=== PATIENT | male | born 1985 | race Caucasian/White ===

== ENCOUNTER 2019-01-03 09:43 | Emergency (ER) | payer OTHER ==
[2019-01-03 09:54] VITALS: TEMP 98.4; BMI 29.7
--- NOTE | 2019-01-03 10:12 | PDOC ---
History of Present Illness - History of Present Illness Initial Comments: 01/03/19 11:00 The patient is a 33 year old male, with no significant past medical history, who presents to the emergency department with left testicular pain since . The patient states the pain started after intercourse with his . He states he is sexually active with one woman. He states the pain was mild at onset, increased on Tuesday, but was alleviated after taking Motrin. He states the pain continued as mild until Tuesday when the pain level increased. He states yesterday he took 4-5 Motrin without relief of pain. He reports the pain is exacerbated with palpation and with walking. He states he feels his left testicle is swollen and he feels a small ball in the left testicle. He denies history of sexually transmitted diseases. The patient denies chest pain, shortness of breath, headache and dizziness. The patient denies fever, chills, nausea, vomit, diarrhea and constipation. The patient denies dysuria, frequency, urgency and hematuria. Allergies: NKDA Past surgical history: none reported <Veronica Ferrara - Last Filed: 01/03/19 13:49> - General History Source: Patient Exam Limitations: No Limitations <Carmen Mejia - Last Filed: 01/03/19 14:29> - General Chief Complaint: Pain Stated Complaint: TESTICULAR PAIN Time Seen by Provider: 01/03/19 10:11 Past History <Veronica Ferrara - Last Filed: 01/03/19 13:49> - Past Medical History COPD: No - Suicide/Smoking/Psychosocial Hx Smoking History: Never smoked Have you smoked in the past 12 months: Yes Number of Cigarettes Smoked Daily: 0 Information on smoking cessation initiated: No 'Breaking Loose' booklet given: 04/08/14 Hx Alcohol Use: No Drug/Substance Use Hx: No <Carmen Mejia - Last Filed: 01/03/19 14:29> - Past Medical History Allergies/Adverse Reactions: Allergies Allergy/AdvReac Type Severity Reaction Status Date / Time No Known Allergies Allergy Verified 01/03/19 09:53 Home Medications: Ambulatory Orders Docusate Sodium [Colace -] 100 mg PO HS #30 capsule 04/09/14 Ferrous Sulfate [Feosol] 325 mg PO TIDCM #100 ud 04/09/14 Psyllium Husk/Aspartame [Metamucil Fiber Singles Packet] 3.4 gm PO BID #60 powd.pack 04/09/14 Naproxen Sodium [Anaprox Ds] 550 mg PO BID PRN #20 tablet 01/03/19 Review of Systems - Review of Systems Able to Perform ROS?: Yes Comments:: 01/03/19 11:00 CONSTITUTIONAL: Absent: fever, no chills, no fatigue EYES: Absent: visual changes ENT: Absent: ear pain, no sore throat CARDIOVASCULAR: Absent: chest pain, no palpitations RESPIRATORY: Absent: cough, no SOB GASTROINTESTINAL: Absent: abdominal pain, no nausea, no vomiting, no constipation, no diarrhea GENITOURINARY: (+) Left testicular pain. Absent: dysuria, no frequency, no hematuria MUSCULOSKELETAL: Absent: back pain, no arthralgia, no myalgia SKIN: Absent: rash NEURO: Absent: headache <Veronica Ferrara - Last Filed: 01/03/19 13:49> *Physical Exam - Vital Signs Last Vital Signs Temp Pulse Resp BP Pulse Ox 98.4 F 71 19 126/81 99 01/03/19 09:51 01/03/19 09:51 01/03/19 09:51 01/03/19 09:51 01/03/19 09:51 - Physical Exam Comments: 01/03/19 11:01 GENERAL: The patient is in no acute distress. HEAD: Normal with no signs of trauma. EYES: PERRLA, EOMI, sclera anicteric, conjunctiva clear. ENT: Ears normal, nares patent, oropharynx clear without exudates. Moist mucous membranes. NECK: Normal range of motion, supple without lymphadenopathy, JVD, or masses. LUNGS: Breath sounds equal, clear to auscultation bilaterally. No wheezes, and no crackles. HEART:Regular rate and rhythm, normal S1 and S2 without murmur, rub or gallop. ABDOMEN: Soft, nontender, normoactive bowel sounds. No guarding, no rebound. No masses palpable. GENITAL: (+) left testicle is swollen and tender to palpation. No erythema, no lesions. Uncircumcised. No penile normal cremasteric reflex. No inguinal hernias.right testicle is normal. EXTREMITIES: Normal range of motion, no edema. No clubbing or cyanosis. No erythema, or tenderness. NEUROLOGICAL: Cranial nerves II through XII grossly intact. Normal speech. No focal neurological deficits. MUSCULOSKELETAL: Back non-tender to palpation, no CVA tenderness SKIN: Warm, Dry, normal turgor, no rashes or lesions noted. <Veronica Ferrara - Last Filed: 01/03/19 13:49> - Vital Signs Last Vital Signs Temp Pulse Resp BP Pulse Ox 98.4 F 71 19 126/81 99 01/03/19 09:51 01/03/19 09:51 01/03/19 09:51 01/03/19 09:51 01/03/19 09:51 <Carmen Mejia - Last Filed: 01/03/19 14:29> Moderate Sedation - Procedure Monitoring Vital Signs: Procedure Monitoring Vital Signs Temperature 98.4 F 01/03/19 09:51 Pulse Rate 71 01/03/19 09:51 Respiratory Rate 01/03/19 09:51 Blood Pressure 126/81 01/03/19 09:51 O2 Sat by Pulse Oximetry (%) 99 01/03/19 09:51 <Veronica Ferrara - Last Filed: 01/03/19 13:49> - Procedure Monitoring Vital Signs: Procedure Monitoring Vital Signs Temperature 98.4 F 01/03/19 09:51 Pulse Rate 71 01/03/19 09:51 Respiratory Rate 01/03/19 09:51 Blood Pressure 126/81 01/03/19 09:51 O2 Sat by Pulse Oximetry (%) 99 01/03/19 09:51 <Carmen Mejia - Last Filed: 01/03/19 14:29> ED Treatment Course - RADIOLOGY Radiograph Interpretation: EXAM#: TYPE/EXAM: RESULT: [id number] US/SCROTUM AND CONTENTS US Scrotal ultrasound CLINICAL INFORMATION: left testicular pain, swelling The exam was performed utilizing grayscale as well as Doppler sonography. No Doppler evidence of testicular torsion (sensitivity 85%). The testes bilaterally demonstrate numerous punctate calcifications consistent with microlithiasis. No obvious associated mass lesion is seen. The testes otherwise appear unremarkable. A smoothly marginated 2.3 x 1.4 x 1.3 cm left epididymal head cyst is noted. No definite internal echogenicity or septations are visualized. The right epididymis appears unremarkable. No hydrocele is seen. IMPRESSION: Bilateral testicular microlithiasis. consultation is suggested in regards to appropriate follow-up. A 2.3 x 1.4 x 1.3 cm left epididymal head cyst is seen. Reported By: Ashu Yarbrough MD 01/03/19 1324 <Veronica Ferrara - Last Filed: 01/03/19 13:49> Medical Decision Making - Medical Decision Making 01/03/19 11:09 Mr Jimenez is a 33 yo M presenting to the ER with a complaint of Left testicular pain which began7 days ago, initially was bearable now more severe Pt pain began after sezual intercourse He has no history of STI, reports sexual activity with 1 person () No fevers, chills, dysuria On exam: Uncircumcised penis, no discharge Left testicular tender to palpation Swollen, no lesions noted No inguinal hernia Will do: UA, Urine Culture GC/Chlamydia Scrotal US 01/03/19 11:14 Laboratory Tests 01/03/19 10:34 Urine Blood Negative Urine Nitrite Negative Ur Leukocyte Esterase Negative 01/03/19 14:20 US demonstrates testicular microcalcifications and Epididymal cyst Call placed to Dr. Crump He states pt should follow up for this I the past, microcalcifications were linked to testicular cancer I have reviewed this with the patient Will discharge to home <Carmen Mejia - Last Filed: 01/03/19 14:29> *DC/Admit/Observation/Transfer - Attestations Scribe Attestion: 01/03/19 11:01 Documentation prepared by Veronica Ferrara, acting as director medical affairs for Carmen Mejia MD <Veronica Ferrara - Last Filed: 01/03/19 13:49> - Discharge Dispostion Decision to Admit order: No <Carmen Mejia - Last Filed: 01/03/19 14:29> Diagnosis at time of Disposition: Epididymal cyst, Scrotal pain - Discharge Dispostion Disposition: HOME Condition at time of disposition: Stable - Referrals Referrals: Alessandro Crump MD [Staff Physician] - - Patient Instructions Printed Discharge Instructions: DI for Testicular Pain Additional Instructions: Elen por venir a la Er hoy Por favor revise bello informe de ultrasonido Tiene pequeos depsitos de calcio en los testculos. [place] necesita ser seguido Tambin tienes un quiste epididimario. Bello dolor debera mejorar con Motrin 600 mg (3 comprimidos) O con el medicamento que le recet Tambin deberas usar apoyo escrotal. Puedes aplicar hielo en el sid que te duele. Thank you for coming in to the Er today Please review your ultrasound report You have small calcium deposits in the testicles This needs to be followed up You also have an epididymal cyst Your pain should improve with either Motrin 600mg (3 tablets) OR the medication I prescribed You should also wear scrotal support You can apply ice to the area the is painful - Post Discharge Activity Forms/Work/School Notes: Back to Work
[2019-01-03] MEDS ORDERED: IBUPROFEN 600 MG TABLET (FP) PO ONE (10:34)
[2019-01-03 11:01] LABS: URINE APPEARANCE CLEAR; URINE BILIRUBIN NEGATIVE (<2.0 mg/dL); URINE COLOR LTYELLOW; URINE GLUCOSE (UA) NEGATIVE (NEGATIVE); URINE KETONE NEGATIVE (NEGATIVE); URINE LEUK ESTERASE NEGATIVE (NEGATIVE); URINE NITRITE NEGATIVE (NEGATIVE); URINE PROTEIN NEGATIVE (NEGATIVE); URINE UROBILINOGEN NEGATIVE mg/dL (0.2-1.0)
[2019-01-03 13:14] VITALS: BP 125/80; PULSE 54
== END 2019-01-03 14:50 | disposition home or self-care (01) ==
LOC: JER 09:43
DX: N50.3 Cyst of epididymis (principal); N50.82 Scrotal pain
CPT/HCPCS: 36415; 76870-TC; 81003; 87086; 87491; 87591; 99282-25